=== PATIENT | male | born 1970 | race Caucasian/White ===

== ENCOUNTER 2023-10-16 20:47 | Emergency (ER) | payer MEDICAID ==
[~2023-10-16] VITALS: Ht 160 cm; Wt 98.0 kg
[2023-10-16 21:25] VITALS: BP 142/73; PULSE 64; RESP 18; TEMP 97.3; O2SAT 100
[2023-10-16 22:33] VITALS: O2SAT 100
[2023-10-17] MEDS ORDERED: IBUP-2213 PO (00:04)
[2023-10-17] MEDS: KETOROLAC 30 MG/ML VIAL IM ONE (00:14)
== END 2023-10-17 00:19 | disposition home or self-care (01) ==
LOC: MED 20:47
DX: S01.312A Laceration without foreign body of left ear, initial encounter (principal); S09.90XA Unspecified injury of head, initial encounter; I10 Essential (primary) hypertension; Z79.899 Other long term (current) drug therapy; W22.8XXA Striking against or struck by other objects, initial encounter; Y92.89 Other specified places as the place of occurrence of the external cause; Y93.89 Activity, other specified; Y99.8 Other external cause status
CPT/HCPCS: 96372; 99283; J1885